=== PATIENT | female | born 2000 | race Caucasian/White ===

== ENCOUNTER 2022-06-27 14:57 | Emergency (ER) | payer OTHER, SELFPAY ==
[2022-06-27 14:57] VITALS: BP 127/80; PULSE 90; RESP 16; TEMP 36.6; O2SAT 99; BMI 19.2
--- NOTE | 2022-06-27 16:03 | EX.ED.DYSGE1 ---
HPI History of Present Illness Chief Complaint: General Illness Detail of Chief Complaint: Vomiting and headache and body aches Informant: patient Narrative Narrative: Patient presents to the emergency department complaint of vomiting since this morning. Patient thought initially that she maybe had a hangover but she really did not drink very much last night. Patient then went to the wellness center at the [facility] and tested positive for COVID-19. Patient states she is thrown up over 10 times and cannot keep anything down. They advised her to come to the ER to get IV fluids. Patient has had the COVID-vaccine. She complains of headache and body aches. She denies dysuria. Prior similar symptoms: No PFSH PFSH Home Medications ondansetron 4 mg disintegrating tablet 4 mg PO Q8H PRN PRN Nausea #10 tabs 06/27/22 [Rx Last Taken Unknown] Allergy/AdvReac Type Severity Reaction Status Date / Time No Known Allergies Allergy Verified 06/27/22 14:57 Social History Smoking Status: Never smoker ROS ROS ED Review of Systems ROS Unobtainable: other Constitutional Constitutional ED: Reports lethargy; Denies chills, fever(s), sweats or weight loss Eyes Eyes: Denies blurry vision, change in vision or diplopia ENT ENT ED: Denies rhinorrhea or sore throat Cardiovascular Cardiovascular: Denies chest pain, orthopnea or racing heartbeat Respiratory/Chest Respiratory/Chest: Reports dyspnea on exertion; Denies cough, dyspnea, orthopnea or sputum Gastrointestinal Gastrointestinal: Reports nausea and vomiting; Denies abdominal pain or diarrhea Genitourinary Genitourinary ED: Denies dysuria, hematuria or urinary frequency Musculoskeletal Musculoskeletal: Reports myalgias; Denies arthralgias, back pain or neck pain Integumentary Denies abscess, Abrasions or rash Neurologic Neurologic: Reports headache(s); Denies weakness Psychiatric Psychiatric: Denies anxiety, depression or suicidal thoughts Endocrine Endocrinology: Denies polydipsia, polyphagia or polyuria Hematologic/Lymphatic Hematologic/Lymphatic: Denies easy bleeding, easy bruising or lymphadenopathy Allergic/Immunologic Allergic/Immunologic ED: Denies mouth swelling, tongue swelling or urticaria EXAM Physical Exam Const Vital Signs: 06/27/22 14:57 06/27/22 15:53 Temperature 97.8 F Temperature Source Temporal Pulse Rate 90 Respiratory Rate 16 Respiratory Effort Normal Non-Labored Respiratory Pattern Normal Blood Pressure 127/80 H Blood Pressure Mean 95 Pulse Ox 99 Oxygen Delivery Method Room Air Positive well nourished and well developed General Appearance ED: well developed and NAD HEENT Reports TM's clear and moist mucous membranes normocephalic and atraumatic; Negative for trauma or tenderness Tympanic Membrane ED: Yes TM's clear Eyes PERRL and EOMs intact bilaterally General Eye ED: Negative for pale conjunctiva or scleral icterus Neck no lymphadenopathy, supple and no JVD General: Negative for tenderness Chest Wall inspection of chest normal and palpation of chest normal Chest: Negative for tenderness Resp normal respiratory effort and clear to auscultation bilaterally Effort and Inspection: Negative for respiratory distress or pain with movement Auscultation: Negative for rhonchi, wheezes or diminished lung sounds Cardio regular rate, regular rhythm, S1 normal heart sound, S2 normal heart sound and no murmurs Peripheral Pulses: pulses 2+ throughout GI normal to inspection, nondistended, normoactive bowel sounds, soft to palpation, non-tender, non-distended and no masses Back/Spine no CVA tenderness and no thoracic nor lumbar tenderness Extremity normal to inspection General Extremety ED: Negative for edema General Extremity: Negative for edema Neuro oriented x3, CN's II-XII intact bilaterally, no sensory deficits noted and gait normal Sensorium / Orientation: awake, alert, oriented to person, oriented to place and oriented to time Motor Exam: strength 5/5 throughout and strength abnormal Psych mental status grossly normal Skin no rashes or lesions noted and no wounds MDM MDM MDM Narrative Medical decision making narrative: IV line established. Patient was given normal saline. Patient given Zofran and Toradol and she felt markedly improved. She was able to tolerate p.o. fluids. Patient will be given a prescription for Zofran. Patient to follow-up with primary care physician as needed. Patient to return if increased difficulty breathing or condition should worsen anyway. Lab Data Attestation: I reviewed the patient's lab results. Labs: Laboratory Results - last 24 hr 06/27/22 06/27/22 16:15 16:40 Sodium 140 Potassium 4.1 Chloride 108 H Carbon Dioxide 25.0 Anion Gap 7 BUN 12 Creatinine 0.61 Estim Creat Clear Calc 138.09 Est GFR (MDRD) Af Amer 162 Est GFR (MDRD) Non-Af 134 BUN/Creatinine Ratio 19.8 Glucose 101 Calcium 10.2 H Serum , Qual NEGATIVE Discharge Plan Triage Chief Complaint: General Illness ED Provider: Ondina Mathis Dx/Rx/DC Orders Clinical Impression: COVID-19, Vomiting Instructions: Caring for Someone Who Has COVID-19, ED Vomiting (Adult) Prescriptions: New ondansetron [ondansetron] 4 mg tablet,disintegrating 4 mg PO Q8H PRN PRN (Reason: Nausea) Qty: 10 0RF Primary Care Provider: Care Physician,No Primary Referrals: Diego Yost DO [Med Staff - [employer]] - As Needed Care Physician,No Primary [Primary Care Provider] - Disposition Disposition: Home, Self Care
[2022-06-27] MEDS: Ketorolac 30 MG/ML Syringe IV (16:15)
[2022-06-27] MEDS: Ondansetron 4 MG/2 ML Vial IV (16:15)
[2022-06-27 16:57] LABS: Anion Gap 7 (5-15); BUN 12 mg/dL (7-18); BUN/Creat Ratio 19.8 RATIO (10-20); Calcium,Total 10.2 mg/dL (8.5-10.1); Chloride 108 mmol/L (98-107); Creatinine, Serum 0.61 mg/dL (0.55-1.02); EST Glomerular Filtration Rate 134 mL/min (>60); Est Glom Filt Rate - Afr Amer 162 mL/min (>60); Estimated Creatinine Clearance 138.09 ml/min; Glucose 101 mg/dL (74-106); Potassium 4.1 mmol/L (3.5-5.1); Sodium Level 140 mmol/L (136-145)
[2022-06-27 17:19] LABS: Internal QC Validated? YES +Cl - CLEAR BKGD; Pregnancy, Serum, hCG Quali. NEGATIVE Negative
== END 2022-06-27 17:57 | disposition home or self-care (01) ==
PROVIDERS: Emergency Provider Emergency Medicine; Visit Provider Emergency Medicine
DX: U07.1 COVID-19 (principal); R11.10 Vomiting, unspecified
CPT/HCPCS: 80048; 84703; 96361; 96374; 96375; 99285; J7040; A4216; J2405

== ENCOUNTER 2023-07-02 15:06 | Emergency (ER) | payer OTHER, SELFPAY ==
[2023-07-02 15:07] VITALS: BP 127/98; PULSE 88; RESP 18; TEMP 36.1; O2SAT 100; BMI 19.6
[2023-07-02] MEDS: 0.9% Normal Saline (1000mL) 1,000 ML 1000 ML IV (15:40)
[2023-07-02] MEDS: Ondansetron 4 MG/2 ML Vial IV (15:40)
[2023-07-02 15:45] LABS: Hemoglobin 13.1 g/dL (12.0-15.0); Mean Corp Hgb Conc 33.6 g/dL (32-36); Mean Corpuscular Hgb 31.6 pg (27.0-32.0); Mean Corpuscular Volume 94.2 fL (81-99); Mean Platelet Vol. 11.5 fl (6.2-12.0); Platelet Count 203 K/mm3 (150-450); RBC Distribution Width CV 13.5 % (11.6-14.6); RBC Distribution Width SD 46.6 fl (35.1-43.9); Red Blood Count 4.14 M/mm3 (4.2-5.4); White Blood Count 6.2 K/mm3 (4.4-11.0)
[2023-07-02 15:59] LABS: Internal QC Validated? YES +Cl - CLEAR BKGD
[2023-07-02 16:00] LABS: Pregnancy, Serum, hCG Quali. NEGATIVE Negative
[2023-07-02 16:07] LABS: Anion Gap 4 (5-15); BUN 12 mg/dL (7-18); BUN/Creat Ratio 20.2 RATIO (10-20); Calcium,Total 9.6 mg/dL (8.5-10.1); Chloride 109 mmol/L (98-107); Creatinine, Serum 0.59 mg/dL (0.55-1.02); EST Glomerular Filtration Rate 136 mL/min (>60); Est Glom Filt Rate - Afr Amer 165 mL/min (>60); Estimated Creatinine Clearance 144.86 ml/min; Glucose 94 mg/dL (74-106); Sodium Level 139 mmol/L (136-145)
--- NOTE | 2023-07-02 17:24 | EX.ED.DYSGE1 ---
HPI History of Present Illness Chief Complaint: Nausea/Vomiting Onset/Context/Timing Context: Gradual Onset Timing: Continuous Current Severity: Moderate Narrative Narrative: Patient was referred by the school nurse for nausea and vomiting. No diarrhea. No fever. No chest pain or shortness of breath. No cough. Patient denies any significant past medical history. [facility] Medical History Headache Home Medications ondansetron 4 mg disintegrating tablet 4 mg PO Q8H PRN PRN Nausea #10 tabs 06/27/22 [Rx Last Taken Unknown] atomoxetine 25 mg capsule 25 mg PO DAILY 07/02/23 [History Last Taken Unknown] ondansetron 4 mg disintegrating tablet 4 mg PO Q8H PRN PRN Nausea #10 tabs 07/02/23 [Rx Last Taken Unknown] sumatriptan 5 mg/actuation nasal spray 5 mg intranasal Q2H PRN migraine headache 07/02/23 [History Last Taken Unknown] Allergy/AdvReac Type Severity Reaction Status Date / Time No Known Allergies Allergy Verified 07/02/23 15:08 Social History Smoking Status: Never smoker ROS ROS ED Constitutional Constitutional ED: Denies chills or fever(s) Eyes Eyes: Denies blurry vision ENT ENT ED: Denies ear pain Cardiovascular Cardiovascular: Denies chest pain Respiratory/Chest Respiratory/Chest: Denies cough or dyspnea Gastrointestinal Gastrointestinal: Reports nausea and vomiting; Denies abdominal pain, diarrhea or melena Genitourinary Genitourinary ED: Denies dysuria Musculoskeletal Musculoskeletal: Denies arthralgias or back pain Integumentary Denies abscess Neurologic Neurologic: Denies headache(s) Endocrine Endocrinology: Denies cold intolerance Allergic/Immunologic Allergic/Immunologic ED: Denies mouth swelling EXAM Physical Exam Const Vital Signs: 07/02/23 15:07 Temperature 97 F L Temperature Source Temporal Pulse Rate 88 Respiratory Rate 18 Blood Pressure 127/98 H Blood Pressure Mean 107 Pulse Ox 100 Oxygen Delivery Method Room Air Positive well nourished and well developed General Appearance ED: well developed HEENT Reports moist mucous membranes Eyes EOMs intact bilaterally Neck no lymphadenopathy Resp normal respiratory effort and clear to auscultation bilaterally Cardio regular rate and regular rhythm GI normal to inspection, nondistended, normoactive bowel sounds, non-tender and non-distended Back/Spine no CVA tenderness Neuro oriented x3 Sensorium / Orientation: alert Psych mental status grossly normal Skin no rashes or lesions noted MDM MDM MDM Narrative Medical decision making narrative: Patient likely has a GI bug. In addition to infection, considered other GI, , WARD SECRETARY causes. hCG was negative. CBC and BMP unremarkable. COVID and influenza testing were negative. She is not having any WARD SECRETARY or symptoms otherwise. Her abdominal exam is reassuring and I do not believe she needs imaging or further diagnostic testing. She is improved after fluids and Zofran. No further vomiting. No diarrhea. Still has a headache but no red flag features. Will treat with Toradol. Patient will be discharged with an outpatient prescription for Zofran. Use [id number] remedies for headache. Stay hydrated. Return for any new or worsening issues. Disposition is discharged home Impression #1 nausea and vomiting Impression #2 headache Lab Data Attestation: I reviewed the patient's lab results. Labs: Laboratory Results - last 24 hr 07/02/23 15:31 WBC 6.2 RBC 4.14 L Hgb 13.1 Hct 39.0 MCV 94.2 MCH 31.6 MCHC 33.6 RDW Std Deviation 46.6 H RDW Coeff of Manuel 13.5 Plt Count 203 MPV 11.5 Sodium 139 Potassium 4.0 Chloride 109 H Carbon Dioxide 26.0 Anion Gap 4 L BUN 12 Creatinine 0.59 Estim Creat Clear Calc 144.86 Est GFR (MDRD) Af Amer 165 Est GFR (MDRD) Non-Af 136 BUN/Creatinine Ratio 20.2 H Glucose 94 Calcium 9.6 Serum , Qual NEGATIVE Discharge Plan Triage Chief Complaint: Nausea/Vomiting ED Provider: Jeb Reyna Dx/Rx/DC Orders Instructions: ED Vomiting (Adult) Prescriptions: New ondansetron [ondansetron] 4 mg tablet,disintegrating 4 mg PO Q8H PRN PRN (Reason: Nausea) Qty: 10 0RF No Action ondansetron [ondansetron] 4 mg tablet,disintegrating 4 mg PO Q8H PRN PRN (Reason: Nausea) Qty: 10 0RF Hold Instructions: Pt has been DC'd atomoxetine 25 mg capsule 25 mg PO DAILY Patient Comments: TAKE 1 CAPSULE BY MOUTH EVERY DAY sumatriptan 5 mg/actuation spray,non-aerosol 5 mg INTRANASAL Q2H PRN (Reason: migraine headache) Patient Comments: USE AT ONSET OF HEADACHE AND MAY REPEAT IN 2 HOURS Primary Care Provider: Care Physician,No Primary Referrals: Celina Cook MD [Med Staff - [employer]] - Disposition Disposition: Home, Self Care
[2023-07-02] MEDS: Ketorolac 30 MG/ML Syringe IV (17:28)
[2023-07-02 17:33] VITALS: BP 119/70; PULSE 64; PULSE 66; RESP 18; O2SAT 100; O2SAT 97
== END 2023-07-02 17:38 | disposition home or self-care (01) ==
PROVIDERS: Emergency Provider Emergency Medicine; Visit Provider Emergency Medicine
DX: R11.2 Nausea with vomiting, unspecified (principal); R51.9 Headache, unspecified
CPT/HCPCS: 80048; 84703; 85027; 87428; 96361; 96374; 96375; 99283; J7030; A4216; J2405

== ENCOUNTER 2024-07-01 02:07 | Emergency (ER) | payer OTHER, SELFPAY ==
[2024-07-01 02:07] VITALS: BP 117/87; PULSE 84; RESP 18; TEMP 37; O2SAT 97; BMI 20.7
--- NOTE | 2024-07-01 02:24 | CT_ITS ---
STUDY: CT ABDOMEN AND PELVIS WITH CONTRAST REASON FOR EXAM: Female, 23 years old patient with abdominal pain. RADIATION DOSAGE (If Supplied By Facility): CTDIvol = ( 8.58 ) mGy, DLP = ( 370.07 ) mGycm TECHNIQUE: Transaxial images were obtained from the dome of the diaphragm to the symphysis pubis without oral contrast. 100 mL of IV Isovue-370 was administered. Sagittal and coronal images were reconstructed. Individualized dose optimization techniques were used for this CT. COMPARISON: Prior comparison studies are not available for review at this time. FINDINGS: There appears to be a nodule in the right lower lobe measuring 6.7 mm. The visualized lung bases are otherwise unremarkable. The visualized portions of the heart are within normal limits. There is hepatomegaly with diffuse hepatic enlargement. The liver measures about 20 cm in greatest dimension. There may be some periportal edema as well. Normal gallbladder and extrahepatic biliary system. Normal spleen. Normal pancreas. Normal bilateral adrenal glands. Normal right kidney. Normal left kidney. Normal visualized stomach. There is no obvious dilated bowel pneumoperitoneum. There is some ascites in the pelvis. There is abnormal thickening of the peacock of the transverse colon and proximal descending colon suggesting sequela of infectious or inflammatory colitis. The appendix is visualized and appears normal. Normal abdominal aorta. There is venous distention of the inferior vena cava (IVC). Normal retroperitoneum. Normal urinary bladder. Normal visualized uterus. There appears to be a left pelvic mass possibly arising from the left ovary that measures approximately 4.1 x 4.6 x 2.3 cm. This has a cystic appearance with peripheral capsule with some internal vascularity. Normal abdominal wall. Normal osseous structures. CT/Abdomen/Pelvis W IV Cont ONLY IMPRESSION: 1. Findings suggest infectious or inflammatory colitis with apparent pelvic fluid. 2. Nonspecific complex cystic mass in the left pelvis possibly arising from left ovary. Electronically Signed: Jaylene Barraza MD at 4:53 EDT ,
[2024-07-01] MEDS: Ondansetron 4 MG/2 ML Vial IV (02:34)
[2024-07-01] MEDS: 0.9% Normal Saline (1000mL) 1,000 ML 999 ML IV (02:34)
[2024-07-01] MEDS: Morphine 4 MG/ML Syringe IV (02:35)
[2024-07-01 02:36] LABS: Absolute Lymphocyte Count 2.33 X10^3/uL (0.83-4.51); Basophil# 0.02 X10^3/uL; Basophil% 0.4 % (0-1); Eosinophil# 0.17 X10^3/uL; Eosinophils% 3.5 % (0-5); Hematocrit 37.8 % (37-47); Hemoglobin 12.9 g/dL (12.0-15.0); Lymphocyte # 2.33 X10^3/ul (0.83-4.51); Lymphocyte % 48.2 % (19-41); Mean Corp Hgb Conc 34.1 g/dL (32-36); Mean Corpuscular Hgb 30.7 pg (27.0-32.0); Mean Platelet Vol. 11.3 fl (6.2-12.0); Monocyte# 0.31 X10^3/uL; Monocyte% 6.4 % (0-10); NRBC Flagged by Analyzer 0 % (0-5); Neutrophil # 1.99 X10^3/uL (2.7-7.7); Neutrophil % 41.3 % (47-70); Platelet Count 199 K/mm3 (150-450); RBC Distribution Width CV 12.1 % (11.6-14.6); RBC Distribution Width SD 39.7 fl (35.1-43.9); White Blood Count 4.8 K/mm3 (4.4-11.0)
--- NOTE | 2024-07-01 02:41 | EDS_ITS ---
HPI History of Present Illness Chief Complaint: Abd Pain Informant: patient and friend Narrative Narrative: Patient is a 23-year-old female with past medical history of anxiety and depression as well as ADD. She states around midnight she developed sharp mid to left lower abdominal pain. She states that the pain seems to radiate up into her abdomen/chest. She reports that there is no associated nausea vomiting diarrhea or dysuria. She denies any recent trauma or excessive activity. She states she recently was diagnosed with COVID but feels she is getting over it. She states her menstrual cycle was approximately 1 week ago but that it was abnormal. She denies any concern for vaginal infection or STD. 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 and based on her worsening pain she was sent in for evaluation [facility] Medical History Headache Medical History no medical history Home Medications ?Medication ?Instructions ?Recorded ?Last Taken ?Type ondansetron 4 mg disintegrating 4 mg PO Q8H PRN PRN Nausea #10 tabs 06/27/22 Un known Rx tablet atomoxetine 25 mg capsule 25 mg PO DAILY 07/02/23 Unknown History ondansetron 4 mg disintegrating 4 mg PO Q8H PRN PRN Nausea #10 tabs 07/02/23 Unknown Rx tablet sumatriptan 5 mg/actuation nasal 5 mg intranasal Q2H PRN migraine 07/02/23 Unknown History spray headache ondansetron 4 mg disintegrating 4 mg PO TID PRN nausea and 07/01/24 Unknown Rx tablet vomiting #21 tabs oxycodone-acetaminophen 5 mg-325 1 tab PO Q6H PRN pain 5 days #20 07/01/24 Unknown Rx mg tablet (Percocet) tabs Allergy/AdvReac Type Severity Reaction Status Date / Time No Known Allergies Allergy Verified 07/01/24 02:36 Social History Smoking Status: Current every day smoker tobacco type: e-cigarettes ROS ROS ED Constitutional Constitutional ED: Denies chills or fever(s) ENT ENT ED: Denies sore throat Cardiovascular Cardiovascular: Denies chest pain Respiratory/Chest Respiratory/Chest: Denies cough or dyspnea Gastrointestinal Gastrointestinal: Reports abdominal pain; Denies constipation, diarrhea, nausea or vomiting Genitourinary Genitourinary ED: Denies dysuria, hematuria or urinary frequency Musculoskeletal Musculoskeletal: Denies back pain or myalgias Integumentary Denies rash Neurologic Neurologic: Denies headache(s) Hematologic/Lymphatic Hematologic/Lymphatic: Denies easy bleeding or easy bruising EXAM Physical Exam Const Vital Signs: 07/01/24 02:07 07/01/24 04:07 07/01/24 06:03 Temperature 98.6 F Temperature Source Oral Pulse Rate 84 76 72 Respiratory Rate 18 18 18 Blood Pressure 117/87 H 107/72 110/70 Blood Pressure Mean 97 83 83 Pulse Ox 97 100 100 Oxygen Delivery Method Room Air Room Air Room Air Positive well nourished and well developed General Appearance ED: well developed; Negative for pallor HEENT Reports moist mucous membranes HEENT Narrative: No signs of infection noted in posterior pharynx Eyes PERRL and EOMs intact bilaterally General Eye ED: Negative for pale conjunctiva or scleral icterus Neck supple Resp normal respiratory effort and clear to auscultation bilaterally Cardio regular rate and regular rhythm Rate: other Other Details: Heart is regular rate and rhythm without murmurs rubs or gallop Radial and carotid pulses are equal and symmetric GI non-distended and no masses GI Narrative: Abdomen is soft and nondistended with normal active bowel sounds. There is pain on palpation in the suprapubic and left lower quadrant with voluntary guarding. No rigidity or peritoneal signs. No pulsatile mass Auscultation: normoactive bowel sounds Palpation: soft Back/Spine Back/Spine Narrative: Positive right CVA pain noted Extremity normal to inspection Neuro oriented x3, CN's II-XII intact bilaterally and no sensory deficits noted Sensorium / Orientation: alert Motor Exam: strength 5/5 throughout Psych Mood & Affect: anxious and tearful Skin no rashes or lesions noted, no wounds and skin turgor normal General Skin Exam: Negative for jaundice or pallor MDM MDM MDM Narrative Medical decision making narrative: Patient arrived to the ER with stable vitals. She reported sudden onset of pain in the lower mid/suprapubic abdomen as well as left lower quadrant. Differential diagnosis is for colitis versus diverticulitis versus kidney stone versus ovarian cyst versus ovarian torsion versus complication such as ectopic . Secondary to this basic labs were obtained as well as a CT scan with IV contrast. Labs revealed no leukocytosis or left shift. test is negative going against complication. There is no signs of acute kidney injury and urine sample shows no sign of infection or blood to suggest pyelonephritis/UTI or kidney stone. CT scan did show a pelvic mass located along the potential left ovary which is could be the cause of the patient's pain. The CT scan also reported intestinal inflammation consistent with inflammatory versus infectious colitis. The patient does not have a fever or white count she does not report vomiting or diarrhea and therefore I do not feel this clinically correlate. However with the patient having suprapubic to left lower quadrant abdominal pain that he reports was sudden in nature and the fact that she has a large pelvic mass there is concern for potential torsion and therefore a transvaginal ultrasound will be obtained. At this time the ultrasound report is still pending and therefore the patient will be signed out to the day physician Dr. Corado. History & Record Review Discussion w/independent historian: Patient Lab Data Attestation: I reviewed the patient's lab results. Labs: Laboratory Results - last 24 hr 07/01/24 07/01/24 02:17 03:15 WBC 4.8 RBC 4.20 Hgb 12.9 Hct 37.8 MCV 90.0 MCH 30.7 MCHC 34.1 RDW Std Deviation 39.7 RDW Coeff of Manuel 12.1 Plt Count 199 MPV 11.3 Immature Gran % (Auto) 0.200 Neut % (Auto) 41.3 L Lymph % (Auto) 48.2 H [place] % (Auto) 6.4 Eos % (Auto) 3.5 Baso % (Auto) 0.4 Absolute Neuts (auto) 2.0 Absolute Lymphs (auto) 2.33 Nucleated RBC % 0 Sodium 141 Potassium 3.6 Chloride 109 H Carbon Dioxide 23.0 Anion Gap 9 BUN 11 Creatinine 0.60 Estim Creat Clear Calc 148.68 Est GFR (MDRD) Af Amer 160 Est GFR (MDRD) Non-Af 132 BUN/Creatinine Ratio 18.2 Glucose 101 Calcium 9.0 Total Bilirubin 0.10 L Direct Bilirubin 0.06 AST 14 L ALT 24 Alkaline Phosphatase 51 Total Protein 6.6 Albumin 3.7 Globulin 2.9 Lipase 36 Serum , Qual NEGATIVE Urine Color Yellow Urine Clarity Clear Urine pH 6.5 Ur Specific [place] 1.010 Urine Protein 15 H Urine Glucose (UA) Normal Urine Ketones Negative Urine Occult Blood Negative Urine Nitrite Negative Urine Bilirubin Negative Urine Urobilinogen Normal Ur Leukocyte Esterase Negative Urine RBC 0 SEEN Urine WBC 0 SEEN Ur Squamous Epith Cells 0 SEEN Urine Bacteria 0 SEEN Urine Mucus 0 SEEN Radiography Diagnostic Testing: Clinical Impression(s) from Imaging Studies Abdomen/Pelvis CT 07/01/24 02:24 IMPRESSION: 1. Findings suggest infectious or inflammatory colitis with apparent pelvic fluid. 2. Nonspecific complex cystic mass in the left pelvis possibly arising from left ovary. Electronically Signed: Jaylene Barraza MD at 4:53 EDT Reading Location ID and State: [address] [place] [address] , Service support , Discharge Plan Triage Chief Complaint: Abd Pain ED Provider: Jhonatan Beaver Dx/Rx/DC Orders Clinical Impression: Pelvic mass in female, ADHD, Anxiety and depression Instructions: Ovarian Cysts, ED Pelvic Pain, Unknown Cause Prescriptions: New ondansetron 4 mg tablet,disintegrating 4 mg PO TID PRN (Reason: nausea and vomiting) Qty: 21 0RF oxycodone-acetaminophen [Percocet] 5-325 mg tablet 1 tab PO Q6H PRN (Reason: pain) 5 Days Qty: 20 0RF No Action ondansetron [ondansetron] 4 mg tablet,disintegrating 4 mg PO Q8H PRN PRN (Reason: Nausea) Qty: 10 0RF atomoxetine 25 mg capsule 25 mg PO DAILY Patient Comments: TAKE 1 CAPSULE BY MOUTH EVERY DAY sumatriptan 5 mg/actuation spray,non-aerosol 5 mg INTRANASAL Q2H PRN (Reason: migraine headache) Patient Comments: USE AT ONSET OF HEADACHE AND MAY REPEAT IN 2 HOURS ondansetron [ondansetron] 4 mg tablet,disintegrating 4 mg PO Q8H PRN PRN (Reason: Nausea) Qty: 10 0RF Primary Care Provider: Care Physician,No Primary Referrals: Emory Saba MD [Med Staff - Active Staff] - Care Physician,No Primary [Primary Care Provider] - Print Language: Belarusian Disposition Disposition: Home, Self Care
[2024-07-01 02:49] LABS: Internal QC Validated? YES +Cl - CLEAR BKGD; Pregnancy, Serum, hCG Quali. NEGATIVE Negative
[2024-07-01 02:50] LABS: AST(SGOT) 14 U/L (15-37); Alanine Aminotransfer ALT/SGPT 24 U/L (13-56); Albumin, Serum 3.7 g/dL (3.2-5.0); Alkaline Phosphatase 51 U/L (45-117); Anion Gap 9 (5-15); BUN 11 mg/dL (7-18); BUN/Creat Ratio 18.2 RATIO (10-20); Bilirubin, Direct 0.06 mg/dL (0.00-0.30); Chloride 109 mmol/L (98-107); EST Glomerular Filtration Rate 132 mL/min (>60); Est Glom Filt Rate - Afr Amer 160 mL/min (>60); Estimated Creatinine Clearance 148.68 ml/min; Globulin 2.9 g/dL (2.2-4.2); Glucose 101 mg/dL (74-106); Lipase 36 U/L (13-75); Potassium 3.6 mmol/L (3.5-5.1); Protein, Total 6.6 g/dL (6.4-8.2); Sodium Level 141 mmol/L (136-145)
[2024-07-01 03:22] LABS: Bacteria 0 SEEN /hpf (None Seen); Mucous, Urine 0 SEEN /hpf (<or=2+); Red Blood Cells-Urine 0 SEEN /hpf (0-5); Squamous Epithelial Cells - UA 0 SEEN /hpf (5-10); White Blood Cells 0 SEEN /hpf (0-5)
[2024-07-01 03:24] LABS: Glucose, Dipstick Normal (Normal); Ketone-Dipstick Negative (Negative); Leukocyte Esterase-Dipstick Negative /ul (Negative); Nitrite-Dipstick Negative (Negative); Occult Blood-Urine Negative /ul (Negative); Protein-Dipstick 15 mg/dl (Negative); Urine Bilirubin Dipstick Negative (Negative); Urine Urobilinogen Normal (Normal); Urine pH 6.5 (5.0 - 8.0)
[2024-07-01 03:31] LABS: Color, Urine Yellow (Yellow); Urine Clarity Clear (Clear)
[2024-07-01 04:07] VITALS: BP 107/72; PULSE 76; RESP 18; O2SAT 100
--- NOTE | 2024-07-01 05:01 | US_ITS ---
INDICATION: pelvic mass / pain EXAMINATION: Ultrasound US Transvaginal Non-OB TECHNIQUE: Transvaginal (for optimal evaluation of the adnexa) pelvic ultrasound was performed. Grayscale, spectral waveform, and color flow Doppler evaluation of the adnexa. COMPARISON: CT scan of the abdomen and pelvis of the same day. FINDINGS: UTERUS: Anteverted. The uterus measures 7.6 x 5.1 x 3.7 cm. There is no uterine mass. The endometrial stripe measures 6 mm in AP diameter which is within normal limits. RIGHT OVARY: 3.6 x 3 x 2 cm. Non-enlarged, normal echogenicity. There is normal arterial inflow and venous outflow present in the right ovary. LEFT OVARY: 6 x 4.7 x 4 cm. Complex left ovarian cyst measuring 3.8 cm with internal echoes and septations likely hemorrhagic. Another small adjacent complex cyst measuring about 3 cm. There is normal arterial inflow and venous outflow present in the left ovary. FREE FLUID: Moderate to large amount of free fluid in the cul-de-sac and in the left adnexal. US/Transvaginal Non- IMPRESSION: 1. Complex left ovarian cysts which could be hemorrhagic. Follow-up examination in 6-8 weeks is recommended. 2. Moderate to large free fluid in the cul-de-sac and left adnexal region. Electronically Signed: Benoit Dhillon MD at 8:57 EDT ,
[2024-07-01] MEDS: Ketorolac 30 MG/ML Syringe IV (05:17)
[2024-07-01 06:03] VITALS: BP 110/70; PULSE 72; RESP 18; O2SAT 100
[2024-07-01 08:00] VITALS: BP 105/72; PULSE 60; RESP 16; O2SAT 96
[2024-07-01 09:30] VITALS: BP 104/62; PULSE 66; RESP 14; TEMP 36.7; O2SAT 98
[2024-07-01 10:00] VITALS: BP 101/59; PULSE 59; RESP 16; TEMP 36.7; O2SAT 97
== END 2024-07-01 10:02 | disposition home or self-care (01) ==
PROVIDERS: Emergency Provider Emergency Medicine; Visit Provider Emergency Medicine
DX: R19.00 Intra-abdominal and pelvic swelling, mass and lump, unspecified site (principal); F17.210 Nicotine dependence, cigarettes, uncomplicated; F90.9 Attention-deficit hyperactivity disorder, unspecified type; F32.A Depression, unspecified; F41.9 Anxiety disorder, unspecified; Z86.16 Personal history of COVID-19
CPT/HCPCS: 74177; 76830; 80048; 80076; 81001; 83690; 84703; 85025; 96361; 96374; 96375; 99284; J7030; Q9967; A4216; J2405

== ENCOUNTER → 2024-07-03 | Outpatient (CLI) | payer OTHER, SELFPAY ==
--- NOTE | 2024-07-03 17:23 | US_ITS ---
STUDY: ULTRASOUND OF THE FEMALE PELVIS - COMPLETE REASON FOR EXAM: Female, 23 years old. LTO CYST F/U LMP: TECHNIQUE: Transabdominal and transvaginal TECHNICAL QUALITY: Adequate. COMPARISON: July 01, 2024 FINDINGS: The uterus is anteverted and is in a midline position. The uterus measures 7.5 x 3.6 x 4.1 cm. Normal uterine cervix. The endometrium measures 1 mm in thickness, and is hyperechoic. There is no demonstrated endometrial mass. There is no demonstrated myometrial mass. I.U.D. - The patient does not have an I.U.D. The right ovary is visualized. The right ovary measures 3.2 x 1.7 x 1.9 cm. There is no right ovarian cyst or ovarian mass. There is no visualized right adnexal mass or complex lesion. There is normal arterial and normal venous vascularity. The left ovary is visualized. The left ovary measures 4.5 x 4.2 x 3.3 cm. There is no left ovarian cyst or ovarian mass. Complex cyst measuring 3.7 x 3.5 x 2.6 cm. There is normal arterial and normal venous vascularity. There is a large amount of fluid in the cul-de-sac. The complex cyst in the left ovary is not changed significantly in size since prior study US/Pelvic w/ Transvaginal IMPRESSION: Complex ovarian cyst in the left ovary with large amount of free fluid not changed prior since prior exam Electronically Signed: Karson Meier MD at 19:10 EDT ,
== END | disposition home or self-care (01) ==
LOC: US 17:21
PROVIDERS: Referring Provider Obstetrics & Gynecology; Visit Provider Obstetrics & Gynecology
DX: N83.202 Unspecified ovarian cyst, left side (principal)
CPT/HCPCS: 76830; 76856

== ENCOUNTER 2024-11-30 04:29 | Emergency (ER) | payer OTHER, SELFPAY ==
[2024-11-30 04:31] VITALS: BP 118/85; PULSE 104; RESP 18; TEMP 36.6; O2SAT 100; BMI 20.7
--- NOTE | 2024-11-30 04:37 | CT_ITS ---
PROCEDURE: ABDOMEN/PELVIS W IV CONT ONLY REASON FOR EXAM: Pain TECHNIQUE: Abdomen and pelvis CT with intravenous contrast. IV CONTRAST: COMPARISON: 07/01/2024. FINDINGS: Lung bases: Clear Liver: Fatty infiltration. Enlarged Gallbladder: Unremarkable. Spleen: Unremarkable. Pancreas: Unremarkable. Adrenals: Unremarkable. Kidneys: Symmetric in size with no evidence of hydronephrosis. No obstructive or nonobstructive calculi. Bladder: Unremarkable. Reproductive Organs: Unremarkable. Bowel: Significant amount of stool in the colon predominantly right colon and cecum.. Appendix: Normal. Lymph nodes: No suspicious lymph node enlargement. Vasculature: Major vascular structures are unremarkable. Peritoneum / Retroperitoneum: Mild amount of free fluid in the pelvis. Bones: Unremarkable. Hernia: Small hiatal hernia CT/Abdomen/Pelvis W IV Cont ONLY IMPRESSION: 1. Significant amount of stool noted in the colon. Correlate with constipatio n. 2. Hepatic steatosis and hepatomegaly. 3. Mild amount of free fluid in the pelvis. One or more dose reduction techniques were used (e.g., Automated exposure contr ol, adjustment of the mA and/or kV according to patient size, use of iterative reconstruction technique). Reading Location: [facility]
--- NOTE | 2024-11-30 04:38 | EX.ED.DYSGE1 ---
HPI History of Present Illness Chief Complaint: Complaint Narrative Narrative: 24-year-old female past medical history of ADHD and anxiety presents with lower abdominal pain that started half an hour ago. Of note, she has history of ovarian cyst that ruptured back in June of last year almost 5 months ago. This may feel similar. She has pain in her lower abdomen radiating to her back. It radiates upwards as well. No recent fevers or chills, no nausea or vomiting. She last finished her menses about 2 weeks ago/just over 2 weeks ago. No prior abdominal surgeries. Pain is both sharp and stabbing and dull and achy. No other exacerbating or alleviating factors. [facility] Medical History COVID-19 Anxiety and depression ADHD Headache Home Medications ?Medication ?Instructions ?Recorded ?Last Taken ?Type oxycodone-acetaminophen 5 mg-325 1 tab PO Q6H PRN pain 5 days #20 07/01/24 Unknown Rx mg tablet (Percocet) tabs dextroamphetamine-amphetamine 10 10 mg PO QDAY 07/03/24 Unknown History mg tablet (Adderall) escitalopram oxalate 10 mg tablet 10 mg PO QDAY 07/03/24 Unknown History (Lexapro) etonogestrel 68 mg subdermal 1 implant subdermal ONCE 07/03/24 Unknown History implant (Nexplanon) ibuprofen 800 mg tablet 800 mg PO TID #30 tabs 07/03/24 Unknown Rx lisdexamfetamine 70 mg capsule 70 mg PO QAM 07/03/24 Unknown History (Vyvanse) multivitamin 1 tab PO QAM 07/03/24 Unknown History cholecalciferol (vitamin D3) 125 125 mcg PO DAILY 11/30/24 Unknown History mcg (5,000 unit) capsule Allergy/AdvReac Type Severity Reaction Status Date / Time No Known Allergies Allergy Verified 11/30/24 04:30 Family History Other Heart disease Surgical History S/P wisdom tooth extraction Social History Smoking Status: Current every day smoker tobacco type: e-cigarettes alcohol intake: current details: occasionally substance use type: does not use seatbelt use: always do you feel safe at home: Yes additional social history: Goes to [email or web address] ROS ROS ED ROS Narrative No fevers or chills, no nausea or vomiting. Positive lower abdominal pain more in the pelvis radiating to her back and upward. No dysuria or hematuria. No problems with bowel movements. EXAM Physical Exam Narrative Exam Narrative: Afebrile. Vital signs noted. Nontoxic-appearing. Tearful on examination. Cardiovascular examination reveals a mild tachycardia. Lungs are clear to auscultation bilaterally. Abdomen is soft with diffuse tenderness to palpation but concentrated in the suprapubic to bilateral lower quadrant area. Neurological examination is nonfocal and nonlateralizing. Const Vital Signs: 11/30/24 04:31 11/30/24 06:47 Temperature 98 F Temperature Source Oral Pulse Rate 104 H 86 Respiratory Rate 18 16 Blood Pressure 118/85 H 122/78 H Blood Pressure Mean 96 92 Pulse Ox 100 98 Oxygen Delivery Method Room Air Room Air MDM MDM MDM Narrative Medical decision making narrative: The differential diagnosis includes but not limited to acute appendicitis versus ruptured ovarian cyst versus cystitis versus pyelonephritis versus ureterolithiasis versus ovarian torsion. Patient administered morphine and ondansetron a bolus of normal saline. I do feel that CT imaging is indicated to rule out appendicitis. I reviewed her laboratory work and she has a normal white count of 6.9 with hemoglobin 13.7, hematocrit 38.3, platelet count normal at 225. Chloride is slightly elevated at 108 which I think is nonspecific, normal BUN and creatinine. Glucose 91. AST is low at 10 which I think is nonspecific. Serum negative. CT of the abdomen pelvis shows a large amount of stool in the colon on the right side consistent with constipation, but patient states she had a bowel movement today. There is mild amount of free fluid in the pelvis which makes me more suspicious for ovarian cyst rupture. Upon repeat examination after morphine, patient states she is silver lap machine tender but feels improved. In order to rule out torsion, I discussed with her obtaining a pelvic ultrasound. Her serum test is negative. Hence I doubt ectopic . At this hour, patient does elect to wait for ultrasound to come in on the regular hours within approximately 45 minutes. At this point in time, patient signed out to Dr. Griffin to check the ultrasound results and rule out ovarian torsion. She will make final disposition on this patient with lower abdominal pain and free fluid in the pelvis. Patient is in stable condition. History & Record Review Discussion w/independent historian: Patient Lab Data Attestation: I reviewed the patient's lab results. Labs: Laboratory Results - last 24 hr 11/30/24 11/30/24 04:50 06:19 WBC 6.9 RBC 4.42 Hgb 13.7 Hct 38.3 MCV 86.7 MCH 31.0 MCHC 35.8 RDW Std Deviation 39.2 RDW Coeff of Manuel 12.5 Plt Count 225 MPV 11.6 Immature Gran % (Auto) 0.300 Neut % (Auto) 46.7 L Lymph % (Auto) 43.8 H [place] % (Auto) 6.6 Eos % (Auto) 2.0 Baso % (Auto) 0.6 Absolute Neuts (auto) 3.2 Absolute Lymphs (auto) 3.04 Nucleated RBC % 0 Sodium 138 Potassium 3.6 Chloride 108 H Carbon Dioxide 22.0 Anion Gap 8 BUN 10 Creatinine 0.58 Estim Creat Clear Calc 153.48 Est GFR (MDRD) Af Amer 168 Est GFR (MDRD) Non-Af 139 BUN/Creatinine Ratio 17.3 Glucose 91 Calcium 9.4 Total Bilirubin 0.40 AST 10 L ALT 18 Alkaline Phosphatase 56 Total Protein 7.3 Albumin 4.2 Globulin 3.1 Albumin/Globulin Ratio 1.4 Serum , Qual NEGATIVE Urine Color Yellow Urine Clarity Clear Urine pH 6.5 Ur Specific [place] 1.015 Urine Protein 100 H Urine Glucose (UA) 1000 H Urine Ketones 5 H Urine Occult Blood 10 H Urine Nitrite Negative Urine Bilirubin Negative Urine Urobilinogen Normal Ur Leukocyte Esterase 25 H Urine WBC 0-5 SEEN Ur Squamous Epith Cells 0-5 SEEN Urine Bacteria 0 SEEN Urine Mucus 0 SEEN Radiography Diagnostic Testing: Clinical Impression(s) from Imaging Studies Abdomen/Pelvis CT 11/30/24 04:37 IMPRESSION: 1. Significant amount of stool noted in the colon. Correlate with constipation. 2. Hepatic steatosis and hepatomegaly. 3. Mild amount of free fluid in the pelvis. One or more dose reduction techniques were used (e.g., Automated exposure control, adjustment of the mA and/or kV according to patient size, use of iterative reconstruction technique). Reading Location: [facility] Discharge Plan Triage Chief Complaint: Complaint ED Provider: Philipp Concepcion Dx/Rx/DC Orders Prescriptions: No Action Nexplanon 68 mg implant 1 implant subdermal ONCE Rx Instructions: as a single dose escitalopram oxalate [Lexapro] 10 mg tablet 10 mg PO QDAY dextroamphetamine-amphetamine [Adderall] 10 mg tablet 10 mg PO QDAY lisdexamfetamine [Vyvanse] 70 mg capsule 70 mg PO QAM multivitamin Tablet 1 tab PO QAM ibuprofen 800 mg tablet 800 mg PO TID Qty: 30 1RF oxycodone-acetaminophen [Percocet] 5-325 mg tablet 1 tab PO Q6H PRN (Reason: pain) 5 Days Qty: 20 0RF cholecalciferol (vitamin D3) 125 mcg (5,000 unit) capsule 125 mcg PO DAILY Primary Care Provider: Care Physician,No Primary Referrals: Care Physician,No Primary [Primary Care Provider] - Print Language: Kosovan
[2024-11-30] MEDS: Ondansetron 4 MG/2 ML Vial IV (04:46)
[2024-11-30] MEDS: Morphine 4 MG/ML Syringe IV (04:47)
[2024-11-30 05:00] LABS: Absolute Lymphocyte Count 3.04 X10^3/uL (0.83-4.51); Absolute Neutrophil Count 3.2 X10^3/uL (2.0-7.7); Basophil# 0.04 X10^3/uL; Basophil% 0.6 % (0-1); Eosinophil# 0.14 X10^3/uL; Hematocrit 38.3 % (37-47); Hemoglobin 13.7 g/dL (12.0-15.0); Lymphocyte # 3.04 X10^3/ul (0.83-4.51); Lymphocyte % 43.8 % (19-41); Mean Corp Hgb Conc 35.8 g/dL (32-36); Mean Corpuscular Volume 86.7 fL (81-99); Mean Platelet Vol. 11.6 fl (6.2-12.0); Monocyte# 0.46 X10^3/uL; Monocyte% 6.6 % (0-10); NRBC Flagged by Analyzer 0 % (0-5); Neutrophil # 3.24 X10^3/uL (2.7-7.7); Neutrophil % 46.7 % (47-70); Platelet Count 225 K/mm3 (150-450); RBC Distribution Width CV 12.5 % (11.6-14.6); RBC Distribution Width SD 39.2 fl (35.1-43.9); Red Blood Count 4.42 M/mm3 (4.2-5.4); White Blood Count 6.9 K/mm3 (4.4-11.0)
[2024-11-30 05:09] LABS: Internal QC Validated? YES +Cl - CLEAR BKGD; Pregnancy, Serum, hCG Quali. NEGATIVE Negative
[2024-11-30 05:18] LABS: ALB/GLOB Ratio 1.4 RATIO (0.9-2.4); AST(SGOT) 10 U/L (15-37); Alanine Aminotransfer ALT/SGPT 18 U/L (13-56); Albumin, Serum 4.2 g/dL (3.2-5.0); Alkaline Phosphatase 56 U/L (45-117); Anion Gap 8 (5-15); BUN 10 mg/dL (7-18); BUN/Creat Ratio 17.3 RATIO (10-20); Calcium,Total 9.4 mg/dL (8.5-10.1); Chloride 108 mmol/L (98-107); Creatinine, Serum 0.58 mg/dL (0.55-1.02); EST Glomerular Filtration Rate 139 mL/min (>60); Est Glom Filt Rate - Afr Amer 168 mL/min (>60); Estimated Creatinine Clearance 153.48 ml/min; Globulin 3.1 g/dL (2.2-4.2); Glucose 91 mg/dL (74-106); Potassium 3.6 mmol/L (3.5-5.1); Protein, Total 7.3 g/dL (6.4-8.2); Sodium Level 138 mmol/L (136-145)
--- NOTE | 2024-11-30 06:12 | US_ITS ---
PROCEDURE: TRANSVAGINAL NON- REASON FOR EXAM: 24-year-old female, midline/left-sided pelvic pain, concern for torsion. COMPARISON: Same day CT abdomen pelvis. Prior pelvic ultrasound report 07/03/2024 (no images available). TECHNIQUE: Transvaginal pelvic ultrasound. Color and spectral doppler analysis of the ovaries. FINDINGS: Measurements: Uterus: 8.5 x 5.3 x 2.8 cm with a volume of 75 mL Endometrial Thickness: 6 mm Right Ovary: 5.1 x 3.4 x 2.9 cm with a volume of 26.3 ml. Left Ovary: 4.1 x 2.2 x 2.9 cm with a volume of 13.7 mL. Uterus: Anteverted. Normal contour and myometrial echotexture. Endometrium: Normal echotexture. Right ovary: Normal size and echotexture. Small hypoechoic nodule with internal calcification within the right ovary measuring 0.7 x 0.5 x 0.5 cm. Left ovary: Normal size and echotexture. Other adnexal findings: None. Cul-de-sac: Small volume free intraperitoneal fluid identified. No tenderness. DOPPLER: Color Doppler: Normal color flow doppler signal at both ovaries. Spectral Doppler: Normal arterial inflow and venous outflow signal at both ovaries. US/Transvaginal Non- IMPRESSION: 1. Normal Doppler signal to the bilateral ovaries. 2. Small hypoechoic nodule with internal calcification within the right ovary, which is nonspecific and likely normal variant. Reading Location: [id number]
[2024-11-30 06:37] LABS: Bacteria 0 SEEN /hpf (None Seen); Mucous, Urine 0 SEEN /hpf (<or=2+)
[2024-11-30 06:47] VITALS: BP 122/78; PULSE 86; RESP 16; O2SAT 98
[2024-11-30 06:47] LABS: Color, Urine Yellow (Yellow); Glucose, Dipstick 1000 mg/dl (Normal); Ketone-Dipstick 5 mg/dl (Negative); Leukocyte Esterase-Dipstick 25 /ul (Negative); Nitrite-Dipstick Negative (Negative); Occult Blood-Urine 10 /ul (Negative); Protein-Dipstick 100 mg/dl (Negative); Specific Gravity, Urine 1.015 (1.002-1.030); Urine Bilirubin Dipstick Negative (Negative); Urine Clarity Clear (Clear); Urine Urobilinogen Normal (Normal); Urine pH 6.5 (5.0 - 8.0)
[2024-11-30 07:40] LABS: Squamous Epithelial Cells - UA 0-5 SEEN /hpf (5-10); White Blood Cells 0-5 SEEN /hpf (0-5)
[2024-11-30 09:07] LABS: Red Blood Cells-Urine 0 SEEN /hpf (0-5)
== END 2024-11-30 08:43 | disposition home or self-care (01) ==
PROVIDERS: Emergency Provider Emergency Medicine; Visit Provider Emergency Medicine
DX: R10.30 Lower abdominal pain, unspecified (principal); F41.9 Anxiety disorder, unspecified; F17.290 Nicotine dependence, other tobacco product, uncomplicated; Z86.16 Personal history of COVID-19; F90.9 Attention-deficit hyperactivity disorder, unspecified type; K59.00 Constipation, unspecified; F32.A Depression, unspecified; K44.9 Diaphragmatic hernia without obstruction or gangrene; R10.2 Pelvic and perineal pain
CPT/HCPCS: 74177; 76830; 80053; 81001; 84703; 85025; 93976; 96374; 96375; 99283; Q9967; A4216; J2405